=== PATIENT | female | born 1955 | race Caucasian/White ===

== ENCOUNTER → 2020-07-11 14:08 | Outpatient (BNVA) | payer MEDICARE, SELFPAY | PROVIDERS: PCP Internal Medicine; Visit Provider Nurse Practitioner | DX: Z13.89 Encounter for screening for other disorder (principal) | CPT/HCPCS: Q3014 ==

== ENCOUNTER → 2021-09-15 13:18 | Outpatient (BNVA) | payer MEDICARE, SELFPAY | PROVIDERS: PCP Internal Medicine; Referring Provider Family Medicine; Visit Provider Nurse Practitioner | DX: K31.84 Gastroparesis (principal); K21.9 Gastro-esophageal reflux disease without esophagitis; K90.0 Celiac disease; D12.6 Benign neoplasm of colon, unspecified | CPT/HCPCS: 99212 ==

== ENCOUNTER → 2022-04-07 12:50 | Outpatient (BNVA) | payer MEDICARE, SELFPAY | PROVIDERS: Visit Provider Nurse Practitioner | DX: K31.84 Gastroparesis (principal); K21.9 Gastro-esophageal reflux disease without esophagitis; K58.0 Irritable bowel syndrome with diarrhea; K90.0 Celiac disease; D12.6 Benign neoplasm of colon, unspecified | CPT/HCPCS: 99212 ==

== ENCOUNTER 2023-09-29 07:24 | Day surgery (SDC) | payer MEDICARE, SELFPAY ==
--- NOTE | 2023-09-28 08:19 | HO.ANESPROP2 ---
HPI - Anesthesia Eval Consult details Narrative: 68yo F for Colonoscopy Anesthesia Pre-Procedure Meds Is the patient on any of the following meds?: Semaglutide (Ozempic) If Yes to any meds - educate patient: Pt education - increased risk of aspiration and Pt education - possibility of cancelled proc at provider's discretion PMFSH Active Problems Active Problems: All Active Problems Abdominal bloating (Acute) Irritable bowel syndrome with diarrhea (Acute) Morbid obesity (Acute) Nausea and vomiting (Acute) Celiac disease (Acute) GERD (gastroesophageal reflux disease) (Acute) Gastroparesis (Acute) Tubular adenoma of colon (Acute) Past Medical History Medical History IBS (irritable bowel syndrome) Celiac disease Tubular adenoma of colon Surgical History Surgical History H/O colonoscopy Social History Social History Patient Tobacco Use Status: Tobacco use Unknown Use of substances other than those prescribed or required for medical reasons: Unknown Advance Directives: No Advance Directives Information Provided: Yes Advance Directives on File: No Patient : No Meds Allergies Allergy/AdvReac Type Severity Reaction Status Date / Time erythromycin base Allergy Intermediate GI Upset, Verified 09/29/23 08:58 Vomitting gluten [GLUTEN] Allergy Intermediate Stomach Verified 09/29/23 08:58 Issues morphine [MORPHINE] Allergy Intermediate Hives Verified 09/29/23 08:58 ,Itching, swelling peanut [PEANUTS] Allergy Intermediate Affects Verified 09/29/23 08:58 Stomach pear [PEAR] Allergy Intermediate Affects Verified 09/29/23 08:58 Stomach prednisone [PREDNISONE] Allergy Intermediate Hives Verified 09/29/23 08:58 soy [SOY] Allergy Intermediate Stomach Verified 09/29/23 08:58 Issues strawberry [STRAWBERRY] Allergy Intermediate Affects Verified 09/29/23 08:58 Stomach tree and shrub pollen [TREE] Allergy Intermediate Runny Nose Verified 09/29/23 08:58 barley Allergy Mild Unknown Verified 09/29/23 08:58 broccoli Allergy Mild Unknown Verified 09/29/23 08:58 Chocolate Allergy Mild affects Verified 09/29/23 08:58 stomach apple Allergy Unknown Unknown Verified 09/29/23 08:58 banana Allergy Unknown Unknown Verified 09/29/23 08:58 egg Allergy Unknown Unknown Verified 09/29/23 08:58 garlic Allergy Unknown Unknown Verified 09/29/23 08:58 grass pollen Allergy Unknown Allergy Verified 09/29/23 08:58 mold [MOLD] Allergy Unknown Takes Verified 09/29/23 08:58 allergy shots onion Allergy Unknown Unknown Verified 09/29/23 08:58 wheat Allergy Unknown Unknown Verified 09/29/23 08:58 TEA Allergy Intermediate Affects Uncoded 09/27/23 10:07 stomach cheddar cheese Allergy Mild Unknown Uncoded 04/07/22 12:58 cow milk Allergy Mild Unknown Uncoded 04/07/22 12:58 Home Medications ?Medication ?Instructions ?Recorded ?Confirmed ?Last Taken ?Type montelukast 10 mg tablet 10 mg PO DAILY 08/18/20 09/27/23 Unknown History atorvastatin 10 mg tablet 10 mg PO DAILY 09/15/21 09/27/23 Unknown History buspirone 15 mg tablet 15 mg PO DAILY 09/15/21 09/27/23 Unknown History fluticasone propionate 50 1 spray intranasal DAILY 09/15/21 09/27/23 Unknown History mcg/actuation nasal spray,suspension lisinopril 2.5 mg tablet 2.5 mg PO DAILY 09/15/21 09/27/23 Unknown History prazosin 2 mg capsule 2 mg PO BEDTIME 09/15/21 09/27/23 Unknown History semaglutide 1 mg/dose (4 mg/3 mL) 1 mg subcut QWEEK 09/15/21 09/27/23 07/31/23 History subcutaneous pen injector (Ozempic) venlafaxine 150 mg 300 mg PO DAILY 09/15/21 09/27/23 Unknown History capsule,extended release 24 hr gabapentin 300 mg capsule 1,200 mg PO BEDTIME 04/07/22 09/27/23 Unknown History lamotrigine 25 mg tablet 50 mg PO BID 04/07/22 09/27/23 Unknown History sertraline 25 mg tablet 25 mg PO DAILY 04/07/22 09/27/23 Unknown History levothyroxine 125 mcg tablet 125 mcg PO DAILY 09/27/23 09/27/23 Unknown History Exam Height,Weight and Vital Signs: Height 4 ft 11.5 in Assessment and Plan Assessment Anesthesia Assessment: Chart Reviewed
--- OUTSIDE RECORDS SUMMARY | 2023-09-29 07:26 | XMS_ITS | Continuity of Care Document ---
Author Organization [facility] Address [address] [place] [address]- Care Team Providers Care Rn Employee Health Name Role Phone Mark GRAY, Mega Primary Care Physician [phone] Encounter [facility] Date(s): 07/15/22 - 08/14/22 [facility] [address] [place] [phone]- Allergies, Adverse Reactions, Alerts Substance Reaction Severity Status erythromycin [D]Vomiting Moderate Active morphine arm swelled up itching Activ e Glutens celiac itching stomach issues Active Tape 1 Blisters Moderate Active Wheat itching celiac disease UPSET GI Active prednisone full body hives Active Other Environmental Allergy bronchitis trees Active Soy Products severe stomach pain diarrhea Active Egg Allergy showed up with allergy testing Active Bananas stomach distress showed up with allergy testing Active 1adhesive tape Immunizations Given and Recorded Vaccine Date Status Refusal Reason SARS-CoV-2 (COVID-19) mRNA-1273 vaccine 04/09/21 R ecorded SARS-CoV-2 (COVID-19) mRNA-1273 vaccine 08/21/20 R ecorded SARS-CoV-2 (COVID-19) mRNA-1273 vaccine 07/25/20 R ecorded influenza virus vaccine, inactivated 04/06/21 Cameron rded influenza virus vaccine, inactivated 1 04/03/12 Gi chato influenza virus vaccine, inactivated 2 04/22/11 Gi chato pneumococcal 23-valent vaccine 02/16/16 Recorded tetanus/diphtheria/pertussis, acel(Tdap) 3 01/19/11 Given 1Admin Note: Given by W[place] Collado Questionaire given with no contraindications. VIS date 12-06-11. 2Admin Note: vis sheet -62-35 allergies and lilia barre ? asked 3Admin Note: CDC info 04/13/08 given Medications atorvastatin 10 mg oral tablet 1 tablet = 10 mg, By Mouth, Daily at bedtime, 0 Refills, Maintenance Start Date: 06/02/17 Status: Ordered Bilateral wrist splint. Bilateral wrist splint., See Instructions, # 2 units, Refills 0, Tot. Refills 0, Maintenance, use daily in am , remove at bedtime length of need :life time dx:carpal tunnel syndrome, 11/15/18 11:03:18 EDT, Compound Start Date: 11/15/18 Status: Ordered busPIRone 15 mg oral tablet 1 tablet = 15 mg, By Mouth, Daily, # 90 tablet, 0 Refills, Maintenance, 07/15/22 15:36:00 EST, [facility]/pharmacy #[id number], Partial fill upon patient request if the prescription is for a schedule II opioid drug., 152.4, cm, 11/06/21 15:33:00 EDT, Height, 98, k... Start Date: 07/15/22 Stop Date: 10/13/22 Status: Ordered calcium (as carbonate) 500 mg oral tablet, chewable 1 tablet = 500 mg, Daily at supper, 0 Refills, Maintenance, 06/02/17 16:17:04 EST Start Date: 06/02/17 Status: Ordered CPAP Machine See Instructions, # 1 each, Refills 11, Tot. Refills 11, Maintenance, Regional:RESMED S10@6cm H2O, Ramp and EPR PRN, w/heated humidifier, data card, chinstrap, climateline tubing, headgear, filters, mask, liners, ALL SuppliesDX: FERDINAND G47.33 Length of... Start Date: 07/13/17 Status: Ordered dicyclomine 10 mg oral capsule 1 capsule = 10 mg, By Mouth, 2 times a day, 0 Refills, Maintenance, 08/04/17 9:44:38 EST Start Date: 08/04/17 Status: Ordered Flonase 1 sprays, prn, 0 Refills, Maintenance, 06/02/17 16:15:22 EST Start Date: 06/02/17 Status: Ordered gabapentin 300 mg oral capsule 4, capsule, By Mouth, Daily at bedtime, # 120 capsule, Refills 3, Tot. Refills 3, 02/03/22 15:02:00EDT, Route to Pharmacy Electronically, [facility]/pharmacy #[id number], 152.4, cm, 11/06/21 15:33:00 EDT, Height, 98, kg, 11/15/20 17:51:00 EDT, Dry Weight Start Date: 02/03/22 Status: Ordered gel lubricating eye drops gel lubricating eye drops, 3 times a day, Refills 0, Maintenance, 08/04/17 9:49:14 EST, Compound Start Date: 08/04/17 Status: Ordered lamotrigine 25 mg oral tablet 2, tablet, By Mouth, Daily, # 180 tablet, Refills 1, Tot. Refills 1, 04/16/22 5:59:00 EST, Route toPharmacy Electronically, [facility]/pharmacy #[id number], 152.4, cm, 11/06/21 15:33:00 EDT, Height, 98, kg, 11/15/20 17:51:00 EDT, Dry Weight Start Date: 04/16/22 Status: Ordered levothyroxine 0.1 mg oral tablet 1 tablet = 100 mcg, By Mouth, Daily, 1 tablet for 6 days then half tablet on 7th day, # 90 tablet, 0 Refills, Maintenance, 11/06/21 15:35:00 EDT, Tablet, Partial fill upon patient request if the prescription is for a schedule II opioid drug. Start Date: 11/06/21 Status: Ordered lisinopril 5 mg oral tablet 2.5 mg, 0.5, tablet, By Mouth, Daily, Refills 0, Maintenance, 08/04/17 9:43:56 EST Start Date: 08/04/17 Status: Ordered Metoclopramide = 5 mg, By Mouth, 3 times a day before meals and bedtime, 0 Refills, Maintenance, 09/04/18 10:48:40EDT Start Date: 09/04/18 Status: Ordered Ozempic (1 mg dose) 2 mg/1.5 mL subcutaneous solution = 1 mg, Subcutaneous Injection, Every week, # 3 mL, 0 Refills, Maintenance, 01/14/20 9:35:00 EDT, Solution Start Date: 01/14/20 Status: Ordered pantoprazole 40 mg oral delayed release tablet 1 tablet = 40 mg, By Mouth, 2 times a day, 0 Refills, Maintenance, 08/04/17 9:45:29 EST Start Date: 08/04/17 Status: Ordered prazosin 2 mg oral capsule 1 capsule, By Mouth, Daily at bedtime, # 90 capsule, 1 Refills, [facility] ST[facility] [id number], 152.4, cm, 04/23/21 10:46:00 EST, Height, 98, kg, 11/15/20 17:51:00 EDT, Dry Weight Start Date: 09/26/21 Status: Ordered ProAir HFA 90 mcg/inh inhalation aerosol with adapter 180 mcg, 2, puffs, Inhalation, 4 times a day, PRN, # 8 Gm, Refills 0, Tot. Refills 0, Maintenance, 10/13/21 14:11:00 EDT, Inhaler, Route to Pharmacy Electronically, [id number], [facility]/pharmacy #[id number], 152.4, cm, 04/23/21 10:46:00... Start Date: 10/13/21 Status: Ordered Probiotic Formula 1 capsule, By Mouth, Daily, 0 Refills, Maintenance, 06/02/17 16:15:33 Start Date: 06/02/17 Status: Ordered spectravite women +50 tablet spectravite women +50 tablet, 1 tab, By Mouth, Daily, Refills 0, Maintenance, 08/04/17 9:46:19 EST,Compound Start Date: 08/04/17 Status: Ordered venlafaxine 150 mg oral capsule, extended release 2 capsule, By Mouth, Daily, # 180 capsule, 1 Refills, 04/16/22 5:59:00 EST, [facility]/pharmacy #[id number], 152.4, cm, 11/06/21 15:33:00 EDT, Height, 98, kg, 11/15/20 17:51:00 EDT, Dry Weight Start Date: 04/16/22 Status: Ordered Vitamin B12 = 1,000 mcg, By Mouth, Daily, 0 Refills, Maintenance, 06/02/17 16:15:51 EST Start Date: 06/02/17 Status: Ordered Vitamin D3 2000 intl units oral capsule See Instructions, 1 capsule By Mouth Daily M TH W Fri (non Sat or Sun), 0 Refills, Maintenance, 08/04/17 9:48:40 EST Start Date: 08/04/17 Status: Ordered Problem List Condition Confirmation Course Effective Dates Status Health St atus Informant Alkaline phosphatase raised Confirmed Active Asthma 1 Confirmed Active Celiac disease Confirmed Active Chronic cough Confirmed Active Depression Confirmed Active Dyspnea on exertion Confirmed Active GERD - Gastro-esophageal reflux disease Confirmed Active , c/s 2 Confirmed Active Hypertension Confirmed Active Hypothyroid Confirmed Active Insulin resistance Confirmed Active Iron deficiency Confirmed Active Irritable bowel syndrome Confirmed Active Migraine Confirmed Active Morbid obesity 2 Confirmed Active Obstructive sleep apnea 3 Confirmed Active 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 2s/p gastric bypass 2005 3RDI 10.8; CPAP at 10 cm H2O reduced AHI to 6.7, [facility], 10/14/07. Resolved as of 06/24/11 PSG, with RDI1.9, SMSWM.. PSG, SMSWM. Social History Social History Type Response Smoking Status Former smoker, quit more than 30 days ago entered on: 01/14/20 Sex Female Patient Care team information Care Team Personnel Name: Mega Flores NP Position: [facility] PCO Associate Professional Member Role: PCP Address: Address: [address] [place] [address] - Name: Guerline Portillo MD Position: [facility] FINANCIAL AID COUNSELOR MD Member Role: [employer] FINANCIAL AID COUNSELOR Physician Address: Address: [address] [place] [address]- Name: Lindsey Yu NP Position: [facility] Associate Professional Member Role: Lifetime Consulting Provider Address: Address: [address] [place] [address] [address] [place] [address]- Care Team Related Persons Name: MIRIAN GRACE Address: home [address] [phone] [place] [address] Name: GERALDINE VASQUEZ Address: home [address] [place] [address]
--- OUTSIDE RECORDS SUMMARY | 2023-09-29 07:26 | XMS_ITS | Continuity of Care Document ---
Author Organization [facility] Address [address] [place] [address]- Care Team Providers Care Crown Ceramist Name Role Phone Mark GRAY, Mega Primary Care Physician Encounter [facility] Date(s): 04/13/22 - 09/26/22 [facility] [address] [place] [address]- Attending Physician: Mika GRAY, Franca Alcala Admitting Physician: Mika GRAY, Franca Alcala Referring Physician: Mika GRAY, Franca Alcala Allergies, Adverse Reactions, Alerts Substance Reaction Severity Status erythromycin [D]Vomiting Moderate Active Glutens celiac itching stomach issues Active Wheat itching celiac disease UPSET GI Active Egg Allergy showed up with allergy testing Active Bananas stomach distress showed up with allergy testing Active morphine arm swelled up itching Activ e Tape 1 Blisters Moderate Active prednisone full body hives Active Other Environmental Allergy bronchitis trees Active Soy Products severe stomach pain diarrhea Active 1adhesive tape Immunizations Given and Recorded [...] 01/19/11 Given 1Admin Note: Given by W[place] Colladoaire given with no contraindications. VIS date 12-06-11. 2Admin Note: vis sheet [id number] allergies and lilia barre ? asked 3Admin [...] tablet, 0 Refills, Maintenance, 07/15/22 15:36:00 EST, [facility]/pharmacy #[id number], Partial fill upon patient request if [...] 3, 02/03/22 15:02:00EDT, Route to Pharmacy Electronically, [facility]/pharmacy #[id number], 152.4, cm, 11/06/21 15:33:00 EDT, Height, [...] 1, 04/16/22 5:59:00 EST, Route toPharmacy Electronically, [facility]/pharmacy #[id number], 152.4, cm, 11/06/21 15:33:00 EDT, Height, [...] at bedtime, # 90 capsule, 1 Refills, [facility], 152.4, cm, 04/23/21 10:46:00 EST, Height, 98, kg, 11/15/20 17:51:00 EDT, Dry Weight Start Date: 09/26/21 Status: Ordered ProAir HFA 90 mcg/inh inhalation aerosol with adapter 180 mcg, 2, puffs, Inhalation, 4 times a day, PRN, # 8 Gm, Refills 0, Tot. Refills 0, Maintenance, 10/13/21 14:11:00 EDT, Inhaler, Route to Pharmacy Electronically, [id number], [facility]/pharmacy #[id number], 152.4, cm, 04/23/21 10:46:00... Start Date: [...] 180 capsule, 1 Refills, 04/16/22 5:59:00 EST, [facility]/pharmacy #[id number], 152.4, cm, 11/06/21 15:33:00 EDT, Height, 98, kg, 11/15/20 17:51:00 EDT, Dry Weight Start Date: 04/16/22 Status: Ordered Vitamin B12 = 1,000 mcg, By Mouth, Daily, 0 Refills, Maintenance, 06/02/17 16:15:51 EST Start Date: 06/02/17 Status: Ordered Vitamin D3 2000 intl units oral capsule See Instructions, 1 capsule By Mouth Daily M T TH W Fri (non Sat or Sun), [...] 10 cm H2O reduced AHI to 6.7, [facility], 10/14/07. Resolved as of 06/24/11 PSG, with RDI1.9, SMSWM.. PSG, SMSWM. Social History Social History Type Response Smoking Status Former smoker, quit more than 30 days ago entered on: 01/14/20 Sex Female Patient Care team information Care Team Personnel Name: Mega Flores NP Position: [facility] PCO Associate Professional Member Role: PCP Address: Address: [address] [place] [address]- Name: Guerline Portillo MD Position: [facility] INCENDIARIES SUPERVISOR MD Member Role: [employer] INCENDIARIES SUPERVISOR Physician Address: Address: [address] [place] [address]- Name: Gigi GRAY, Lindsey Lane Position: [facility] Associate Professional Member Role: Lifetime Consulting Provider Address: Address: [address] [place] [address] [address] [place] [address]- Care Team Related Persons Name: SANJAYMIRIAN EVERETT Address: home [address] [place] [phone] [place] [address] Name: GERALDINE VSAQUEZ Address: home [address] [place] [address]
--- OUTSIDE RECORDS SUMMARY | 2023-09-29 07:27 | XMS_ITS | Continuity of Care Document ---
Author Organization [facility] Address [address] [place] [address] [address], [address] [place] [address]- Care Team Providers Care Laundry Aide Name Role Phone Gigi COMPUTATIONAL PHYSICIST, Lindsey Lane Primary Care Physician Encounter [facility] Date(s): 08/23/23 - 08/30/23 [facility] [address] [place] [address], [address] [place], [place] [address] Attending Physician: Jewell Mckeon MD Allergies, Adverse Reactions, Alerts Substance Reaction Severity [...] VIS date 12-06-11. 2Admin Note: vis sheet [id number] allergies and lilia barre ? asked 3Admin [...] tablet, 0 Refills, Maintenance, 07/15/22 15:36:00 EST, [facility]/pharmacy #[id number], Partial fill upon patient request [...] 3, 02/03/22 15:02:00EDT, Route to Pharmacy Electronically, [facility]/pharmacy #[id number], 152.4, cm, 11/06/21 15:33:00 EDT, [...] 1, 04/16/22 5:59:00 EST, Route toPharmacy Electronically, [facility]/pharmacy #[id number], 152.4, cm, 11/06/21 15:33:00 EDT, [...] at bedtime, # 90 capsule, 1 Refills, [facility] STORE 94527, 152.4, cm, 04/23/21 10:46:00 EST, Height, 98, kg, 11/15/20 17:51:00 EDT, Dry Weight Start Date: 09/26/21 Status: Ordered ProAir HFA 90 mcg/inh inhalation aerosol with adapter 180 mcg, 2, puffs, Inhalation, 4 times a day, PRN, # 8 Gm, Refills 0, Tot. Refills 0, Maintenance, 10/13/21 14:11:00 EDT, Inhaler, Route to Pharmacy Electronically, [id number], [facility]/pharmacy #[id number], 152.4, cm, 04/23/21 10:46:00... Start [...] 180 capsule, 1 Refills, 04/16/22 5:59:00 EST, [facility]/pharmacy #[id number], 152.4, cm, 11/06/21 15:33:00 EDT, Height, 98, kg, 11/15/20 17:51:00 EDT, Dry Weight Start Date: 04/16/22 Status: Ordered Vitamin B12 = 1,000 mcg, By Mouth, Daily, 0 Refills, Maintenance, 06/02/17 16:15:51 EST Start Date: 06/02/17 Status: Ordered Vitamin D3 2000 intl units oral capsule See Instructions, 1 capsule By Mouth Daily M W Fri (non Sat or Sun), 0 [...] 10 cm H2O reduced AHI to 6.7, [facility]. Resolved as of 06/24/11 PSG, with RDI1.9, SMSWM.. PSG, SMSWM. Vital Signs Most recent to oldest [Reference Range]: 1 Height 152.4 cm (08/23/23 9:38 AM) Weight 100 kg (08/23/23 9:38 AM) Body Mass Index [18.5-24.99 kg/m2] 43.06 kg/m2 *>HHI* (08/23/23 9:38 AM) Social History Social History Type Response Smoking Status Former smoker, quit more than 30 days ago entered on: 01/14/20 Sex Female Patient Care team information Care Team Personnel Name: Guerline Portillo MD Position: [facility] REFUSE COLLECTOR SUPERVISOR MD Member Role: [employer]etime REFUSE COLLECTOR SUPERVISOR Physician Address: Address: [address] [place] [address]- Name: Gigi GRAY, Lindsey Lane Position: [facility] Physician - Hospital Medicine Member Role: PCP Address: Address: [address] [facility] [place] [address]- Care Team Related Persons Name: MIRIAN GRACE Address: home [address] [phone] [place] [address] Name: GERALDINE VASQUEZ Address: home [address] [place] [address]
--- OUTSIDE RECORDS SUMMARY | 2023-09-29 07:27 | XMS_ITS | Continuity of Care Document ---
Author Organization [facility] Address [address] [place] [address] [address], [address] [place] [address]- Care Team Providers Care Brush Hand Name Role Phone Mark GRAY, Mega Primary Care Physician Encounter [facility] Date(s): 07/20/23 - 08/19/23 [facility] [address] [place] [address], [address] [place], [place] [address] Allergies, Adverse Reactions, Alerts Substance Reaction Severity [...] 01/19/11 Given 1Admin Note: Given by W[place] Colladoairelma given with no contraindications. VIS date 12-06-11. 2Admin Note: vis sheet -05-19 allergies and lilia barre ? asked 3Admin [...] tablet, 0 Refills, Maintenance, 07/15/22 15:36:00 EST, [facility]/pharmacy #[id number], Partial fill upon patient [...] 3, 02/03/22 15:02:00EDT, Route to Pharmacy Electronically, [facility]/pharmacy #[id number], 152.4, cm, 11/06/21 15:33:00 [...] 1, 04/16/22 5:59:00 EST, Route toPharmacy Electronically, [facility]/pharmacy #[id number], 152.4, cm, 11/06/21 15:33:00 [...] at bedtime, # 90 capsule, 1 Refills, [facility] STORE 24151, 152.4, cm, 04/23/21 10:46:00 EST, Height, 98, kg, 11/15/20 17:51:00 EDT, Dry Weight Start Date: 09/26/21 Status: Ordered ProAir HFA 90 mcg/inh inhalation aerosol with adapter 180 mcg, 2, puffs, Inhalation, 4 times a day, PRN, # 8 Gm, Refills 0, Tot. Refills 0, Maintenance, 10/13/21 14:11:00 EDT, Inhaler, Route to Pharmacy Electronically, [id number], [facility]/pharmacy #[id number], 152.4, cm, 04/23/21 10:46:00... [...] 180 capsule, 1 Refills, 04/16/22 5:59:00 EST, [facility]/pharmacy #[id number], 152.4, cm, 11/06/21 15:33:00 [...] cm H2O reduced AHI to 6.7, [facility], 10/14/07. Resolved as of 06/24/11 PSG, with RDI1.9, SMSWM.. PSG, SMSWM. Social History Social History Type Response Smoking Status Former smoker, quit more than 30 days ago entered on: 01/14/20 Sex Female Patient Care team information Care Team Personnel Name: Mega Flores NP Position: [facility] PCO Associate Professional Member Role: PCP Address: Address: [address] [place] [address]- Name: Guerline Portillo MD Position: [facility] CUSTOMER ADVISOR MD Member Role: [employer]etime CUSTOMER ADVISOR Physician Address: Address: [address] [place] [address]- Name: Gigi GRAY, Lindsey Lane Position: [facility] Physician - Hospital Medicine Member Role: Lifetime Consulting Provider Address: Address: [address] [place] [address] [address] [place] [address]- Care Team Related Persons Name: MIRIAN GRACE Address: [address] [phone] [place] [address] Name: GERALDINE VASQUEZ Address: home [address] [place] [address]
--- OUTSIDE RECORDS SUMMARY | 2023-09-29 07:27 | XMS_ITS | Continuity of Care Document ---
Author Organization [facility] Address [address] [place], [place] [address]judith kamara, [address] [place] [address]- Care Team Providers Care Furniture Reproducer Name Role Phone Gigi POWERBUILDER, Lindsey Lane Primary Care Physician Encounter [facility] Date(s): 08/23/23 - 09/22/[address] [place], [place] [address] Attending Physician: Admtr, [id number] Admitting Physician: Admtr, [id number] Referring Physician: Admtr, [id number] Allergies, Adverse Reactions, Alerts Substance Reaction Severity Status erythromycin [D]Vomiting Moderate Active Wheat itching celiac disease UPSET GI Active Soy Products severe stomach pain diarrhea Active Egg Allergy showed up with allergy testing Active morphine arm swelled up itching Activ e Bananas stomach distress showed up with allergy testing Active Glutens celiac itching stomach issues Active Tape 1 Blisters Moderate Active prednisone full body hives Active Other Environmental Allergy bronchitis trees Active 1adhesive tape Immunizations Given and Recorded [...] VIS date 12-06-11. 2Admin Note: vis sheet -05-55 allergies and lilia barre ? asked 3Admin [...] tablet, 0 Refills, Maintenance, 07/15/22 15:36:00 EST, [facility]/pharmacy #[id number], Partial fill upon patient request [...] 3, 02/03/22 15:02:00EDT, Route to Pharmacy Electronically, [facility]/pharmacy #[id number], 152.4, cm, 11/06/21 15:33:00 EDT, [...] 1, 04/16/22 5:59:00 EST, Route toPharmacy Electronically, [facility]/pharmacy #[id number], 152.4, cm, 11/06/21 15:33:00 EDT, [...] # 90 capsule, 1 Refills, [id number], 152.4, cm, 04/23/21 10:46:00 EST, Height, 98, kg, 11/15/20 17:51:00 EDT, Dry Weight Start Date: 09/26/21 Status: Ordered ProAir HFA 90 mcg/inh inhalation aerosol with adapter 180 mcg, 2, puffs, Inhalation, 4 times a day, PRN, # 8 Gm, Refills 0, Tot. Refills 0, Maintenance, 10/13/21 14:11:00 EDT, Inhaler, Route to Pharmacy Electronically, [id number], [facility]/pharmacy #[id number], 152.4, cm, 04/23/21 10:46:00... Start [...] 180 capsule, 1 Refills, 04/16/22 5:59:00 EST, [facility]/pharmacy #[id number], 152.4, cm, 11/06/21 15:33:00 EDT, [...] 10 cm H2O reduced AHI to 6.7, [facility], 10/[place]07. Resolved as of 06/24/11 PSG, with RDI1.9, SMSWM.. PSG, SMSWM. Social History Social History Type Response Smoking Status Former smoker, quit more than 30 days ago entered on: 01/14/20 Sex Female Patient Care team information Care Team Personnel Name: Guerline Portillo MD Position: [facility] MIXER AND BLENDER MD Member Role: Lifetime MIXER AND BLENDER Physician Address: Address: [address] [place] [address]- Name: Lindsey Yu NP Position: [facility] Physician - [facility] Medicine Member Role: PCP Address: Address: [address] [place] [address] [address] [place] [address]- Care Team Related Persons Name: MIRIAN GRACE Address: home [address] [phone] [place] [address] Name: GERALDINE VASQUEZ Address: home [address] [place] [address]
--- OUTSIDE RECORDS SUMMARY | 2023-09-29 07:27 | XMS_ITS | Continuity of Care Document ---
Author Organization [facility] Address [address] [place] [address]- Care Team Providers Care Clinical Reimbursement Specialist Name Role Phone Gigi CHIEF COMPLIANCE OFFICER, Lindsey Lane Primary Care Physician Encounter [facility] Date(s): 09/24/22 - 11/19/[address] [address]- Attending Physician: Mika GRAY, Franca Alcala Admitting Physician: Mika GRAY, Franca Alcala Referring Physician: Mika GRAY, Franca Alcala Allergies, Adverse Reactions, Alerts Substance Reaction Severity Status erythromycin [D]Vomiting Moderate Active morphine arm swelled up itching Activ e Tape 1 Blisters Moderate Active Wheat itching celiac disease UPSET GI Active prednisone full body hives Active Other Environmental Allergy bronchitis trees Active Soy Products severe stomach pain diarrhea Active Egg Allergy showed up with allergy testing Active Bananas stomach distress showed up with allergy testing Active Glutens celiac itching stomach issues Active 1adhesive tape Immunizations Given and Recorded [...] VIS date 12-06-11. 2Admin Note: vis sheet [id number] allergies and lilia barre ? asked 3Admin [...] 0 Refills, Maintenance, 07/15/22 15:36:00 EST, [facility]/pharmacy #[id number], Partial fill upon patient request if [...] 02/03/22 15:02:00EDT, Route to Pharmacy Electronically, [facility]/pharmacy #[id number], 152.4, cm, 11/06/21 15:33:00 EDT, Height, [...] 04/16/22 5:59:00 EST, Route toPharmacy Electronically, [facility]/pharmacy #[id number], 152.4, cm, 11/06/21 15:33:00 EDT, Height, [...] # 90 capsule, 1 Refills, [id number], 152.4, cm, 04/23/21 10:46:00 EST, Height, 98, kg, 11/15/20 17:51:00 EDT, Dry Weight Start Date: 09/26/21 Status: Ordered ProAir HFA 90 mcg/inh inhalation aerosol with adapter 180 mcg, 2, puffs, Inhalation, 4 times a day, PRN, # 8 Gm, Refills 0, Tot. Refills 0, Maintenance, 10/13/21 14:11:00 EDT, Inhaler, Route to Pharmacy Electronically, [id number], [facility]/pharmacy #[id number], 152.4, cm, 04/23/21 10:46:00... Start Date: [...] capsule, 1 Refills, 04/16/22 5:59:00 EST, [facility]/pharmacy #[id number], 152.4, cm, 11/06/21 15:33:00 EDT, Height, [...] 10 cm H2O reduced AHI to 6.7, [facility], 10/14[place]07. Resolved as of 06/24/11 PSG, with RDI1.9, SMSWM.. PSG, SMSWM. Social History Social History Type Response Smoking Status Former smoker, quit more than 30 days ago entered on: 01/14/20 Sex Female Patient Care team information Care Team Personnel Name: Guerline Portillo MD Position: [facility] ENVIRONMENTAL CONTROL ADMINISTRATOR MD Member Role: Lifetime ENVIRONMENTAL CONTROL ADMINISTRATOR Physician Address: Address: [address] [place] [address]- Name: Lindsey Yu NP Position: [facility] Associate Professional Member Role: PCP Address: Address: [address] [place] [address] [address] [facility] [place] [address]- Care Team Related Persons Name: MIRIAN GRACE Address: [address] [phone] [place] [address] Name: GERALDINE VASQUEZ Address: home [address] [place] [address]
--- OUTSIDE RECORDS SUMMARY | 2023-09-29 07:27 | XMS_ITS | Continuity of Care Document ---
Author Organization [facility] Address [address] [place] [address]- Care Team Providers Care Adventure Challenge Instructor Name Role Phone Gigi INCLUSION SPECIAL EDUCATION TEACHER, Lindsey Lane Primary Care Physician Encounter [facility] Date(s): 10/26/22 - 12/10/[address] [address]- Attending Physician: Mika GRAY, Franca Alcala Admitting Physician: Mika GRAY, Franca Alcala Referring Physician: Mika GRAY, Franca Alcala Allergies, Adverse Reactions, Alerts Substance Reaction Severity Status erythromycin [D]Vomiting Moderate Active Glutens celiac itching stomach issues Active Egg Allergy showed up with allergy [...] VIS date 12-06-11. 2Admin Note: vis sheet [id number] allergies and lilia barre ? asked 3Admin [...] tablet, 0 Refills, Maintenance, 07/15/22 15:36:00 EST, [facility]/pharmacy #[id number], Partial fill upon patient request if [...] 3, 02/03/22 15:02:00EDT, Route to Pharmacy Electronically, [facility]/pharmacy #[id number], 152.4, cm, 11/06/21 15:33:00 EDT, Height, [...] 1, 04/16/22 5:59:00 EST, Route toPharmacy Electronically, [facility]/pharmacy #[id number], 152.4, cm, 11/06/21 15:33:00 EDT, Height, [...] # 90 capsule, 1 Refills, [facility], 152.4, cm, 04/23/21 10:46:00 EST, Height, 98, kg, 11/15/20 17:51:00 EDT, Dry Weight Start Date: 09/26/21 Status: Ordered ProAir HFA 90 mcg/inh inhalation aerosol with adapter 180 mcg, 2, puffs, Inhalation, 4 times a day, PRN, # 8 Gm, Refills 0, Tot. Refills 0, Maintenance, 10/13/21 14:11:00 EDT, Inhaler, Route to Pharmacy Electronically, [id number], [facility]/pharmacy #[id number], 152.4, cm, 04/23/21 10:46:00... Start Date: [...] 180 capsule, 1 Refills, 04/16/22 5:59:00 EST, [facility]/pharmacy #[id number], 152.4, cm, 11/06/21 15:33:00 EDT, Height, [...] 10 cm H2O reduced AHI to 6.7, [facility], 10/14/07. Resolved as of 06/24/11 PSG, with RDI1.9, SMSWM.. PSG, SMSWM. Social History Social History Type Response Smoking Status Former smoker, quit more than 30 days ago entered on: 01/14/20 Sex Female Patient Care team information Care Team Personnel Name: Guerline Portillo MD Position: [facility] WOODWORKING MACHINE OFFBEARER MD Member Role: Lifetime WOODWORKING MACHINE OFFBEARER Physician Address: Address: [address] [place] [address]- Name: Lindsey Yu NP Position: [facility] Medicine Member Role: PCP Address: Address: [address] [place] [address] [address] [place] [address]- Care Team Related Persons Name: MIRIAN GRACE Address: [address] [phone] [place] [address] Name: GERALDINE VASQUEZ Address: home [address] [place] [address]
[2023-09-29 08:14] VITALS: BP 121/78; PULSE 73; RESP 18; TEMP 36.2; O2SAT 95
[2023-09-29 08:25] VITALS: BMI 43.7
[2023-09-29] MEDS: Lactated Ringers 1,000 ML 100 ML IVCONT (08:58)
--- NOTE | 2023-09-29 09:27 | HO.ANESPROP2 ---
FORMERLY [facility], [facility] Active Problems Active Problems: All Active Problems Abdominal bloating (Acute) Irritable bowel syndrome with diarrhea (Acute) Morbid obesity (Acute) Nausea and vomiting (Acute) Celiac disease (Acute) GERD (gastroesophageal reflux disease) (Acute) Gastroparesis (Acute) Tubular adenoma of colon (Acute) Past Medical History Medical History IBS (irritable bowel syndrome) Celiac disease Tubular adenoma of colon Functional capacity: independent ambulation Patient : No Family History Family history of problems with anesthesia: No Surgical History Surgical History H/O colonoscopy History of Problems with Anesthesia: No Social History Social History Patient Tobacco Use Status: Tobacco use Unknown Use of substances other than those prescribed or required for medical reasons: Unknown Advance Directives: No Advance Directives Information Provided: Yes Advance Directives on File: No Meds Allergies Allergy/AdvReac Type Severity Reaction Status Date / Time erythromycin base Allergy Intermediate GI Upset, Verified 09/29/23 08:58 Vomitting gluten [GLUTEN] Allergy Intermediate Stomach Verified 09/29/23 08:58 Issues morphine [MORPHINE] Allergy Intermediate Hives Verified 09/29/23 08:58 ,Itching, swelling peanut [PEANUTS] Allergy Intermediate Affects Verified 09/29/23 08:58 Stomach pear [PEAR] Allergy Intermediate Affects Verified 09/29/23 08:58 Stomach prednisone [PREDNISONE] Allergy Intermediate Hives Verified 09/29/23 08:58 soy [SOY] Allergy Intermediate Stomach Verified 09/29/23 08:58 Issues strawberry [STRAWBERRY] Allergy Intermediate Affects Verified 09/29/23 08:58 Stomach tree and shrub pollen [TREE] Allergy Intermediate Runny Nose Verified 09/29/23 08:58 barley Allergy Mild Unknown Verified 09/29/23 08:58 broccoli Allergy Mild Unknown Verified 09/29/23 08:58 Chocolate Allergy Mild affects Verified 09/29/23 08:58 stomach apple Allergy Unknown Unknown Verified 09/29/23 08:58 banana Allergy Unknown Unknown Verified 09/29/23 08:58 egg Allergy Unknown Unknown Verified 09/29/23 08:58 garlic Allergy Unknown Unknown Verified 09/29/23 08:58 grass pollen Allergy Unknown Allergy Verified 09/29/23 08:58 mold [MOLD] Allergy Unknown Takes Verified 09/29/23 08:58 allergy shots onion Allergy Unknown Unknown Verified 09/29/23 08:58 wheat Allergy Unknown Unknown Verified 09/29/23 08:58 TEA Allergy Intermediate Affects Uncoded 09/27/23 10:07 stomach cheddar cheese Allergy Mild Unknown Uncoded 04/07/22 12:58 cow milk Allergy Mild Unknown Uncoded 04/07/22 12:58 Active Medications: Current Medications Lactated Ringer's (Lr) 1,000 mls @ 100 mls/hr IVCONT .Q10H MICAH Last Admin: 09/29/23 08:58 Dose: 100 mls/hr Home Medications ?Medication ?Instructions ?Recorded ?Confirmed ?Last Taken ?Type montelukast 10 mg tablet 10 mg PO DAILY 08/18/20 09/27/23 Unknown History atorvastatin 10 mg tablet 10 mg PO DAILY 09/15/21 09/27/23 Unknown History buspirone 15 mg tablet 15 mg PO DAILY 09/15/21 09/27/23 Unknown History fluticasone propionate 50 1 spray intranasal DAILY 09/15/21 09/27/23 Unknown History mcg/actuation nasal spray,suspension lisinopril 2.5 mg tablet 2.5 mg PO DAILY 09/15/21 09/27/23 Unknown History prazosin 2 mg capsule 2 mg PO BEDTIME 09/15/21 09/27/23 Unknown History semaglutide 1 mg/dose (4 mg/3 mL) 1 mg subcut QWEEK 09/15/21 09/27/23 07/31/23 History subcutaneous pen injector (Ozempic) venlafaxine 150 mg 300 mg PO DAILY 09/15/21 09/27/23 Unknown History capsule,extended release 24 hr gabapentin 300 mg capsule 1,200 mg PO BEDTIME 04/07/22 09/27/23 Unknown History lamotrigine 25 mg tablet 50 mg PO BID 04/07/22 09/27/23 Unknown History sertraline 25 mg tablet 25 mg PO DAILY 04/07/22 09/27/23 Unknown History levothyroxine 125 mcg tablet 125 mcg PO DAILY 09/27/23 09/27/23 Unknown History Exam Height,Weight and Vital Signs: Height 4 ft 11.5 in Weight 99.79 kg Last Vital Signs Temp 97.2 F 09/29/23 08:14 Pulse 73 09/29/23 08:14 Resp 18 09/29/23 08:14 BP 121/78 09/29/23 08:14 Pulse Ox 95 09/29/23 08:14 O2 Del Method Room Air 09/29/23 08:14 Airway Mallampati Class: III TM Dist: >3cm Neck ROM: Full Heart: RRR Lungs: CTA Assessment and Plan Assessment Anesthesia Assessment: Anesthesia Plan Discussed Final Anesthetic Review Family History of Problems with Anesthesia: No History of Problems with Anesthesia: No ASA Class: III Final Preanesthetic Review: Meds/Allgs Chart Reviewed, Consent Obtained/Reviewed and Anes Risks/Benef Reviewed Patient Risk: Intermediate Procedure Risk: Low Anesthetic Plan Anesthetic Plan: MAC: Disposition: Standard PACU
--- NOTE | 2023-09-29 09:41 | MHC.SHP ---
Pre-Procedural Eval Section A - 24 Hr Update-Section A only Date of Service: 09/29/23 Section B - Complete if H&P > 30 days Chief Complaint: Benign neoplasm, unspecified site Details of Present Illness: Tubular adenoma of colon Surgical History H/O colonoscopy Allergies: Allergies Allergy/AdvReac Type Severity Reaction Status Date / Time erythromycin base Allergy Intermediate GI Upset, Verified 09/29/23 08:58 Vomitting gluten [GLUTEN] Allergy Intermediate Stomach Verified 09/29/23 08:58 Issues morphine [MORPHINE] Allergy Intermediate Hives Verified 09/29/23 08:58 ,Itching, swelling peanut [PEANUTS] Allergy Intermediate Affects Verified 09/29/23 08:58 Stomach pear [PEAR] Allergy Intermediate Affects Verified 09/29/23 08:58 Stomach prednisone [PREDNISONE] Allergy Intermediate Hives Verified 09/29/23 08:58 soy [SOY] Allergy Intermediate Stomach Verified 09/29/23 08:58 Issues strawberry [STRAWBERRY] Allergy Intermediate Affects Verified 09/29/23 08:58 Stomach tree and shrub pollen [TREE] Allergy Intermediate Runny Nose Verified 09/29/23 08:58 barley Allergy Mild Unknown Verified 09/29/23 08:58 broccoli Allergy Mild Unknown Verified 09/29/23 08:58 Chocolate Allergy Mild affects Verified 09/29/23 08:58 stomach apple Allergy Unknown Unknown Verified 09/29/23 08:58 banana Allergy Unknown Unknown Verified 09/29/23 08:58 egg Allergy Unknown Unknown Verified 09/29/23 08:58 garlic Allergy Unknown Unknown Verified 09/29/23 08:58 grass pollen Allergy Unknown Allergy Verified 09/29/23 08:58 mold [MOLD] Allergy Unknown Takes Verified 09/29/23 08:58 allergy shots onion Allergy Unknown Unknown Verified 09/29/23 08:58 wheat Allergy Unknown Unknown Verified 09/29/23 08:58 TEA Allergy Intermediate Affects Uncoded 09/27/23 10:07 stomach cheddar cheese Allergy Mild Unknown Uncoded 04/07/22 12:58 cow milk Allergy Mild Unknown Uncoded 04/07/22 12:58 Review of Systems Review of Systems Comment: Ten point ROS negative Exam Exam Comment: Gen appear: No acute distress HEENT: no icterus Chest: No overt resp distress Abd: soft, nontender, nondistended Psych: Stable affect, answering questions appropriately Neuro: A/Ox3 noted to move all extremities spontaneously Ext: no peripheral edema Plan Diagnosis/Plan: Unchanged I have reviewed the history and physical and performed a pertinent physical examination on my patient. No changes have occurred unless specified. Time Spent With Patient Time: Total time managing care of this patient today ____ minutes.
--- NOTE | 2023-09-29 09:46 | P.OP_ITS ---
Operative Note Operative Note Date of Service: 09/29/23 Narrative: Procedure: Colonoscopy Indication: History of polyps Endoscopist: Kaitlyn Resendiz MD Anesthesia Provider: Charo Hernandez CRNA Anesthesia type: MAC Instrument: Olympus [id number]-H190L Consent: Indication, risks vs benefits, and alternatives were discussed with the patient who gave written informed consent to proceed. EKG, pulse, pulse oximetry and blood pressure were monitored throughout the procedure. Please see anesthesia flowsheet. Procedure: The patient was brought to the procedure room and placed in the left lateral decubitus position. IV medications were administered by the anesthesia provider in attendance. A digital rectal exam was performed which was normal. A distal attachment cap was affixed to the tip of the colonoscope which was then inserted through the anus and advanced through the colon to the cecum at 90 cm. Appendiceal orifice and ileocecal valve were identified. Mucosa was carefully examined under high definition white light as the instrument was slowly withdrawn in a retrograde panoramic fashion. Retroflexion was performed in rectum. The procedure was somewhat difficult and 2 person pressure was utilized to intubate the cecum. There were no immediate obvious complications. The quality of the prep was BBPS: 2+2+2 = adequate Withdrawal time 13 minutes. Limitations: No limitations. Findings: Mucosa: Liquid stool was noted throughout the whole colon, which was extensively attempted to suction. No large polyps were noted. Normal mucosa to cecum and terminal ileum. Protruding lesions: * Medium internal hemorrhoids without stigmata of recent bleeding. Excavated lesions: * Moderate diverticulosis of left sided colon. Impression: 1. Normal colon mucosa 2. Diverticulosis 3. Internal hemorrhoids Recommendations: - repeat colonoscopy in 5 years due to quality of prep
[2023-09-29 10:23] VITALS: BP 104/54; PULSE 71; RESP 12; TEMP 36.6; O2SAT 98
[2023-09-29 10:38] VITALS: BP 127/68; PULSE 64; RESP 16; TEMP 36.6; O2SAT 99
--- NOTE | 2023-09-29 14:37 | HO.POSTANES ---
Post Anesthesia Evaluation Post Anesthesia Evaluation Date of Service: 09/29/23 Vital Signs: Vital Signs Temp Pulse Resp BP Pulse Ox O2 Del Method 09/29/23 10:38 97.8 F 64 16 127/68 99 Room Air 09/29/23 10:23 98 F 71 12 104/54 L 98 Room Air 09/29/23 08:14 97.2 F 73 18 121/78 95 Room Air Anesthesia: Monitored Mental Status: Awake Pain Control: Satisfactory Nausea/Vomiting: None Hydration: Adequate Anesthesia-Related Issues: No Anes. Related Issues
== END 2023-09-29 11:00 | disposition home or self-care (01) ==
PROVIDERS: PCP Nurse Practitioner Gerontology; Visit Provider Internal Medicine
PROC: 0DJD8ZZ Inspection of Lower Intestinal Tract, Via Natural or Artificial Opening Endoscopic (ICD-10-PCS; CPT 45378; principal; 2023-09-29 09:20)
DX: Z12.11 Encounter for screening for malignant neoplasm of colon (principal); Z86.010 Personal history of colon polyps; K57.30 Diverticulosis of large intestine without perforation or abscess without bleeding; K64.8 Other hemorrhoids; K58.0 Irritable bowel syndrome with diarrhea; K21.9 Gastro-esophageal reflux disease without esophagitis; K31.84 Gastroparesis; K90.0 Celiac disease; E66.01 Morbid (severe) obesity due to excess calories; Z68.41 Body mass index [BMI] 40.0-44.9, adult; Z79.85 Long-term (current) use of injectable non-insulin antidiabetic drugs; Z79.899 Other long term (current) drug therapy; Z88.1 Allergy status to other antibiotic agents; Z88.5 Allergy status to narcotic agent; Z91.012 Allergy to eggs; Z91.010 Allergy to peanuts; Z91.018 Allergy to other foods
CPT/HCPCS: G0105; J2704

== ENCOUNTER → 2023-09-29 07:24 | Outpatient (BNV) | payer MEDICARE, SELFPAY | PROVIDERS: PCP Nurse Practitioner Gerontology; Visit Provider Internal Medicine | DX: Z12.11 Encounter for screening for malignant neoplasm of colon (principal); Z86.010 Personal history of colon polyps; K64.8 Other hemorrhoids; K57.30 Diverticulosis of large intestine without perforation or abscess without bleeding | CPT/HCPCS: G0105 ==

== ENCOUNTER 2023-10-12 09:55 | Outpatient (AMB) | payer MEDICARE, SELFPAY ==
--- NOTE | 2023-10-12 10:05 | MHC.OFFVIS ---
Vital Signs 10/12/23 10:06 Height 4 ft 11.5 in Weight 226 lb 3.108 oz BMI 44.9 BP 134/71 Blood Pressure Location Lt brachial Position Sitting Pulse 60 Intake Visit Reasons: s/p colon Intake Note: Patient in office today for follow up s/p colonoscopy. CC: Patient denies having any GI concerns or symptoms today. Watershed Tender Required: No Accompanied by: Self / Same As Patient Allergies erythromycin base Allergy (Intermediate, Verified 10/12/23 10:10) GI Upset, Vomitting gluten [GLUTEN] Allergy (Intermediate, Verified 10/12/23 10:10) Stomach Issues morphine [MORPHINE] Allergy (Intermediate, Verified 10/12/23 10:10) Hives ,Itching, swelling peanut [PEANUTS] Allergy (Intermediate, Verified 10/12/23 10:10) Affects Stomach pear [PEAR] Allergy (Intermediate, Verified 10/12/23 10:10) Affects Stomach prednisone [PREDNISONE] Allergy (Intermediate, Verified 10/12/23 10:10) Hives soy [SOY] Allergy (Intermediate, Verified 10/12/23 10:10) Stomach Issues strawberry [STRAWBERRY] Allergy (Intermediate, Verified 10/12/23 10:10) Affects Stomach tree and shrub pollen [TREE] Allergy (Intermediate, Verified 10/12/23 10:10) Runny Nose barley Allergy (Mild, Verified 10/12/23 10:10) Unknown broccoli Allergy (Mild, Verified 10/12/23 10:10) Unknown Chocolate Allergy (Mild, Verified 10/12/23 10:10) affects stomach apple Allergy (Unknown, Verified 10/12/23 10:10) Unknown banana Allergy (Unknown, Verified 10/12/23 10:10) Unknown egg Allergy (Unknown, Verified 10/12/23 10:10) Unknown garlic Allergy (Unknown, Verified 10/12/23 10:10) Unknown grass pollen Allergy (Unknown, Verified 10/12/23 10:10) Allergy mold [MOLD] Allergy (Unknown, Verified 10/12/23 10:10) Takes allergy shots onion Allergy (Unknown, Verified 10/12/23 10:10) Unknown wheat Allergy (Unknown, Verified 10/12/23 10:10) Unknown TEA Allergy (Intermediate, Uncoded 09/27/23 10:07) Affects stomach cheddar cheese Allergy (Mild, Uncoded 04/07/22 12:58) Unknown cow milk Allergy (Mild, Uncoded 04/07/22 12:58) Unknown HPI HPI s/p colon: Details: Assessment & Plan (1) Irritable bowel syndrome with diarrhea: ?Code(s): K58.0 - Irritable bowel syndrome with diarrhea ?Plan: She has a new PCP Dr Lezama office in [place]. She is having more N/V. Unsure if it is stress.....also having a hard time with avoiding gluten r/t inflation. Will increase reglan from 5mg to 10mg? - she only takes BID. Does not like to cook for herself.? (again she suddenly lost her to a heart attack a few months ago).? I do marriage counselor minister her that if she is going to make a sandwich perhaps she can put the meat between 2 pieces of lattice since consuming gluten is not going to do her stomach any favors. She continues on her protonix and dicyclomine. She is agreeable to having the colonoscopy scheduled. ROV 6 weeks. (2) GERD (gastroesophageal reflux disease): ?Code(s): K21.9 - Gastro-esophageal reflux disease without esophagitis (3) Gastroparesis: ?Code(s): K31.84 - Gastroparesis (4) Celiac disease: ?Comment: I have checked her celiac panel to make sure she is avoiding gluten and is perfectly normal.? This indicates she is doing a good job and this does not seem to be a contributing factor to her episodes of diarrhea.? A EB ?Code(s): K90.0 - Celiac disease (5) Tubular adenoma of colon: ?Comment: 2018 scope=TA repeat 2021 ?Code(s): D12.6 - Benign neoplasm of colon, unspecified ? ? ? Orders: Orders Complete Blood Count Auto Diff Today D12.6 - Benign neoplasm of colon, unspecified ? Comprehensive Met. Panel Today D12.6 - Benign neoplasm of colon, unspecified ? Medications: New metoclopramide HCl (Reglan) 10 mg? PO BID 60 tabs 3RF K31.84 - Gastroparesis ? simethicone (Gas Relief (simethicone)) 180 mg? PO TID-QID 90 caps 6RF R14.0 - Abdominal distension (gaseous) ? peg 3350-electrolytes 236-22.74-6.74 -5.86 gram (Golytely) ?? until fecal effluent is clear; do not exceed a total volume of 2,000 mL 240 mL? PO Q10M 1 day 4,000 mL 0RF Z12.11 - Encounter for screening for malignant neoplasm of colon ? Refilled pantoprazole 40 mg? PO BID 180 tabs 1RF K21.9 - Gastro-esophageal reflux disease without esophagitis ? Discontinued metoclopramide HCl (Reglan) ?? Discontinued Reason:? Doctor's Order 5 mg? PO QIDACHS 30 days 90 tabs 6RF E66.01 - Morbid (severe) obesity due to excess calories, K21.9 - Gastro-esophageal reflux disease without esophagitis, K31.84 - Gastroparesis, K58.0 - Irritable bowel syndrome with diarrhea, K90.0 - Celiac disease, R11.2 - Nausea with vomiting, unspecified ? LABS: Not obtained COLONOSCOPY 09/29/23 Findings: Mucosa: Liquid stool was noted throughout the whole colon, which was extensively attempted to suction. No large polyps were noted. Normal mucosa to cecum and terminal ileum. Protruding lesions: Medium internal hemorrhoids without stigmata of recent bleeding. Excavated lesions: Moderate diverticulosis of left sided colon Impression: 1. Normal colon mucosa 2. Diverticulosis 3. Internal hemorrhoids Recommendations: - repeat colonoscopy in 5 years due to quality of prep TODAY'S VISIT She has a gastric bypass and can not drink the whole go lytely. We will definitely need to do a 2 day prep and or see if we can get a lower volume prep the next time she has a colonoscopy. We had insurance problems coverage problems this time. The procedure was well tolerated. The results were explained and the patient is agreeable to the follow-up interval as stated. The bowel pattern has returned to normal. Education was provided to tell any 1st degree relatives about their findings to be sure that they are screened by age 45. Educated that they will be put on a recall list when it is time for their repeat scope but should they move out of state or away from the hospital they will need to remember along with their primary to repeat the procedure in a timely fashion to avoid any adverse complications. She has been doing well w/o her GI medications so I will only have her see me prn. [facility] Medical History IBS (irritable bowel syndrome) Celiac disease Tubular adenoma of colon Surgical History H/O colonoscopy Social History Patient Tobacco Use Status: Tobacco use Unknown Review of Systems Const Denies fatigue, Denies fever(s), Denies night sweats, Denies poor appetite and Denies weight loss ENT Reports Normal hearing present, Denies dental pain, Denies dysphagia, Denies hearing loss, Denies mouth pain, Denies odynophagia, Denies throat swelling, Denies tongue swelling and Reports other (Dentition adequate) Card Reports no additional complaints Resp Reports no additional complaints GI Details: Denies abdominal pain, Denies melena, Denies bloating, Denies hematochezia, Denies constipation, Denies GI cramping, Denies dysphagia, Denies excessive flatus, Denies early satiety, Denies heartburn, Denies diarrhea, Denies nausea, Denies odynophagia, Denies vomiting and Denies hematemesis Skin/Breast Denies pruritus, Denies lesions, Denies rash and Denies jaundice Neuro Reports Normal hearing present and Denies Abnormal speech present Endo Denies fatigue Aller/Immun Denies throat swelling and Denies tongue swelling Physical Exam Vital Signs: Last Vital Signs Pulse 60 10/12/23 10:06 BP 134/71 10/12/23 10:06 BMI result Body Mass Index 44.9 Const General: cooperative, no acute distress, well developed and well groomed Nutritional Appearance: well nourished and obese Orientation/consciousness: oriented to person, oriented to place and oriented to time Limitations: No language barrier HEENT Head: Yes normocephalic and Yes atraumatic Eyes General: appearance normal, both eyes and all related structures Pupils: Equal, round and reactive pupils present Neck Neck: Yes normal visual inspection and Yes no lymphadenopathy Thyroid: Thyroid normal Resp Effort & Inspection: normal respiratory effort and able to speak in complete sentences Auscultation: clear to auscultation bilaterally Cardio Rate: regular rate Rhythm: regular rhythm Heart sounds: Normal, physiologic split S2 sound present Peripheral pulses: radial pulses present and posterior tibial pulses present GI Inspection: No distended, Yes Abdominal panniculus present and Yes obesity Palpation (GI): Soft to palpation, nontender, no guarding, not rigid and No hepatosplenomegaly present Percussion: Yes normal to percussion Auscultation: normal bowel sounds Rectal Exam - Female: deferred Skin General skin exam: no rashes or lesions noted, turgor normal, skin not dry, no jaundice, No spider nevi and no striae Rashes: no rashes Nails: normal Neuro General: oriented to person, oriented to place and oriented to time Cranial nerves: Yes Equal, round and reactive pupils present and Yes Normal hearing present Speech: No Abnormal speech present Extrem General: Yes normal to inspection, No clubbing, No cyanosis and No edema Psych Appearance: grossly normal and well kempt Mental Status: mental status grossly normal Speech and movement: Normal speech and movement present Affect: normal affect Attitude: cooperative Thought process: Normal thought process present and not confabulating Thought content: Normal thought content present Insight: Good insight present (Psych) Judgement: Good judgement present (Psych) Results Reviewed Results Reviewed: LABS: Not obtained COLONOSCOPY 09/29/23 Findings: Mucosa: Liquid stool was noted throughout the whole colon, which was extensively attempted to suction. No large polyps were noted. Normal mucosa to cecum and terminal ileum. Protruding lesions: Medium internal hemorrhoids without stigmata of recent bleeding. Excavated lesions: Moderate diverticulosis of left sided colon Impression: 1. Normal colon mucosa 2. Diverticulosis 3. Internal hemorrhoids Recommendations: - repeat colonoscopy in 5 years due to quality of prep Assessment & Plan Assessment & Plan (1) Irritable bowel syndrome with diarrhea: Code(s): K58.0 - Irritable bowel syndrome with diarrhea Category: Medical (2) GERD (gastroesophageal reflux disease): Code(s): K21.9 - Gastro-esophageal reflux disease without esophagitis Category: Medical (3) Celiac disease: Comment: I have checked her celiac panel to make sure she is avoiding gluten and is perfectly normal. This indicates she is doing a good job and this does not seem to be a contributing factor to her episodes of diarrhea. A EB Code(s): K90.0 - Celiac disease Category: Medical (4) Nausea and vomiting: Code(s): R11.2 - Nausea with vomiting, unspecified Category: Medical Plan She has a gastric bypass and can not drink the whole go lytely. We will definitely need to do a 2 day prep and or see if we can get a lower volume prep the next time she has a colonoscopy. We had insurance problems coverage problems this time. The procedure was well tolerated. The results were explained and the patient is agreeable to the follow-up interval as stated. The bowel pattern has returned to normal. Education was provided to tell any 1st degree relatives about their findings to be sure that they are screened by age 45. Educated that they will be put on a recall list when it is time for their repeat scope but should they move out of state or away from the hospital they will need to remember along with their primary to repeat the procedure in a timely fashion to avoid any adverse complications. She has been doing well w/o her GI medications so I will only have her see me prn. Medications: Discontinued simethicone (Gas Relief (simethicone)) Discontinued Reason: Change Referral Type 180 mg PO TID-QID 90 caps 6RF R14.0 - Abdominal distension (gaseous) dicyclomine Discontinued Reason: Doctor's Order 10 mg PO QID 360 caps 2RF K58.0 - Irritable bowel syndrome with diarrhea metoclopramide HCl (Reglan) Discontinued Reason: Doctor's Order 10 mg PO BID 60 tabs 3RF K31.84 - Gastroparesis pantoprazole Discontinued Reason: Change Referral Type 40 mg PO BID 180 tabs 1RF K21.9 - Gastro-esophageal reflux disease without esophagitis Coding Level of Care Code Est Pt Level 3 (39059) Diagnoses Irritable bowel syndrome with diarrhea K58.0 GERD (gastroesophageal reflux disease) K21.9 Celiac disease K90.0 Nausea and vomiting R11.2
[2023-10-12 10:06] VITALS: BP 134/71; PULSE 60; BMI 44.9
== END 2023-10-12 11:26 | disposition home or self-care (01) ==
PROVIDERS: Visit Provider Nurse Practitioner
DX: K58.0 Irritable bowel syndrome with diarrhea (principal); K21.9 Gastro-esophageal reflux disease without esophagitis; K90.0 Celiac disease; R11.2 Nausea with vomiting, unspecified
CPT/HCPCS: 99213

== ENCOUNTER → 2023-10-12 09:55 | Outpatient (BNVA) | payer MEDICARE, SELFPAY | PROVIDERS: Visit Provider Nurse Practitioner | DX: K58.0 Irritable bowel syndrome with diarrhea (principal); K21.9 Gastro-esophageal reflux disease without esophagitis; K90.0 Celiac disease; R11.2 Nausea with vomiting, unspecified | CPT/HCPCS: 99212 ==